=== PATIENT | female | born 2000 | race Two or more races ===

== ENCOUNTER 2025-02-21 13:24 | Outpatient (AMB) | payer OTHER, SELFPAY ==
--- NOTE | 2025-02-21 13:36 | MHC.OFFVIS ---
Intake Visit Reasons: back pain Allergies No Known Allergies (No Known Allergies*) Allergy (Unverified 06/29/24 15:04) HPI Comments Details: This is a 24-year-old previously healthy woman who was doing yoga and exercises in August 2021 when she bent over to touch her toes she felt a pop in her lower back and developed severe low back pain in the left buttock area and would occasionally get tingling down the left leg. Following that she has had multiple exacerbations of her back pain periodically especially if she picked up something heavy or was low walking for long. She has had physical therapy for 8 weeks with strengthening of the core muscles and stretching and education in how to lift and carry. In the last few weeks she has been doing excellent. Over the years she has had a few exacerbations where it would get really bad and she could not move. She has no persistent numbness or weakness. She gets occasional tingling down the front of the thigh that can go down to the foot but not recently. She has no bladder or bowel control problems. [facility] Medical History (Updated 02/21/25 @ 13:48 by Simon Sherman MD) Back pain Review of Systems Musc Reports back pain, Reports numbness, Reports radiating pain into limb and Reports stiffness Neuro Reports numbness and Reports radicular pain Physical Exam Neuro Other: ?Mini Mental Status Exam Level of Consciousness:?Alert.? Orientation:?Knows correct year, month, date, day and season.?Knows correct city, county and state. Knows correct location and floor.? Registration:?Able to register 3 objects.? Attention:?Serial 7's performed accurately.? Recall:?Able to recall 3 out of 3 objects.? Language:?Normal spontaneous speech, fluency, repetition, naming, comprehension, reading, and writing.? Total Score:?30/30.? Neurological Abnormal neurological findings:??none.? Mental Status:?Alert and oriented X 3.?Normal attention, orientation, memory, and affect.? Cranial Nerves:?Pupils are equal, round and reactive to light. Fundoscopy shows normal disc bilaterally. External occular muscles are intact. Visual enriquez are full, no ptosis. Face is symmetrical, no facial weakness or droop. Facial sensations are normal. Tongue protrudes in midline. Palate elevates symmetrically. Shoulder shrugging is normal.? Motor Examination:?Normal muscle tone, bulk and strength.?No atrophy or fasciculations.?No drift of the extended upper extremities.?Deep tendon reflexes are 2+.?Plantars are flexor.? Motor Strength:? Proximal Muscles (out of 5):?5 Distal Muscles (out of 5):?5 Neck Flexors (out of 5):?5 Neck Extensors (out of 5):?5 Deltoid (out of 5):?5 Biceps (out of 5):?5 Triceps (out of 5):?5 Serratus Anterior (out of 5):?5 Wrist Extensors (out of 5):?5 APB (out of 5):?5 Finger Spread (out of 5):?5 Ileopsoas (out of 5):?5 Quadriceps (out of 5):?5 Hamstrings (out of 5):?5 Tibialis Anterior (out of 5):?5 Peronei (out of 5):?5 EDB (out of 5):?5 Gastrocnemius (out of 5):?5 Straight Leg Raising:?90 degrees.? Sensory Exam:?Normal light touch, temperature, pinprick, vibration and joint-position sensations.?Rhomberg sign is absent.? Coordination:?No ataxia,?no titubation,?xppqya-ic-tvjt, uzcl-uemp-ozau test, and rapid alternating movements were normal.? Gait Exam:?Within normal limits.? Cerebellar Signs:?Xnhgwn-nb-qvff and yksj-wi-tzty is normal.?No dysdiadochokinesia.? Extrapyramidal System:?No tremor or?rigidity, normal facial expressions.?No bradykinesia. No bradyphrenia. Normal arm swing and posture. No propulsion or retropulsion.? Speech:?Normal,?no dysphasia or dysarthria.? General Examination GENERAL APPEARANCE:??normal,?in no acute distress?,?normal,?in no acute distress.? HEAD:??normocephalic,?atraumatic.? EYES:??sclera non-icteric,?conjunctiva clear.? EARS:??auditory canal clear,?tympanic membrane intact, clear.? NOSE:??no lesions.? ORAL CAVITY:??gums normal,?mucosa moist,?no lesions.? THROAT:??clear.? NECK/THYROID:??no cervical lymphadenopathy,?thyroid normal,?neck supple, full range of motion,?no carotid bruit.? SKIN:??no rashes,?no significant birthmarks.? BACK:??normal exam of spine.? MUSCULOSKELETAL:??normal.? EXTREMITIES:??no edema?,?no edema.? PERIPHERAL PULSES:??normal.? PSYCH:??alert, oriented,?cognitive function intact,?cooperative with exam?,?alert, oriented,?cognitive function intact,?cooperative with exam.? Assessment & Plan Assessment & Plan (1) Lumbar disc herniation with radiculopathy: Code(s): M51.16 - Intervertebral disc disorders with radiculopathy, lumbar region Category: Medical (2) Back pain: Code(s): M54.9 - Dorsalgia, unspecified Category: Medical Plan Core strengthening exercises. Caution and techniques for lifting and carrying weights more than 20 lb Call if there is an acute exacerbation in which case an MRI of the LS spine will be done Coding Level of Care Code New Pt Level 5 (29073) Diagnoses Lumbar disc herniation with radiculopathy M51.16 Back pain M54.9
--- OUTSIDE RECORDS SUMMARY | 2025-02-21 15:03 | XMS_ITS | Clinical Summary ---
Author Organization [facility] Address [address] [place] [id number] Phone Care Team Providers Care Manager Outpatient Name Role Phone Unavailable Primary Care Provider Unavailabl e Allergies No known active allergies Medications docusate sodium 100 MG capsule Take 100 mg by mouth once daily. 3 06/17/2016 Active loratadine (CLARITIN) 10 MG tabletIndication s:Allergic rhinitis due to other allergic trigger, unspecified rhinitis seasonality Take 1 tablet (10 mg total) by mouth daily. 30 tablet 1 11/19/2016 Active Active Problems Problem Noted Date Diagnosed Date Slow transit constipation 06/17/2016 Dysthymic disorder 06/17/2016 Assessment & Plan (11/23/2017 3:23 PM EDT): Reports some depression and anxiety, currently in therapy. Therapist suggested coming here to discuss medications, pt expresses interest in scheduling a time to discuss. No crisis today, feels safe. Screening forms for depression/anxiety provided to patient by [facility]. Pt to schedule 30 minute f/u to review and discuss. Pt comfortable with this plan. Other urticaria 06/01/2014 Other atopic dermatitis and related conditions 0 05/23/2009 Immunizations Immunization Administration Dates Next Due DTaP 5 01/11/2003, 1,07/16/1999,05/17,03/16/1999 HPV Vaccine 9 Valent 06/17/2016,05/16/2015 Hep B, ped/adol 07/16/1999,01/24/1999,1998 Hib (HbOC) 06/17/2000, 0,05/17/1999,03/16 IPV 01/11/2003, 0,05/17/1999,03/16 Influenza, injectable, quadr ivalent, preservative free 06/17/2016 Influenza, injectable, triva lent, preservative free 05/16/2015,04/08/2011 Influenza, intranasal, trivalent 12/26/2011 MMR 01/11/2003,07/08/2000,01/29/2000 Meningococcal Conj (Menactra) MCV4P 05/16/2015,1 06/09/2010 Tdap 04/08/2011 Varicella 12/26/2011,07/08/2000 Social History Tobacco Use Types Packs/Day Years Used Date Smoking Tobacco: Never Comments:Never Smoker Comments No Sex and Gender Information Value Date Recorded Sex Assigned at Not on file Legal Sex Female 4:09 PM EST Gender Identity Not on file Sexual Orientation Not on file Last Filed Vital Signs Vital Sign Reading Time Taken Comments Blood Pressure 110/60 11/23/2017 2:18 PM EDT Pulse 70 11/23/2017 2:18 PM EDT Temperature 36.4 C (97.5 F) 11/23/2017 2:18 PM EDT Respiratory Rate 20 11/23/2017 2:18 PM EDT Oxygen Saturation 98% 11/23/2017 2:18 PM EDT Inhaled Oxygen Concentration - - Weight 72.6 kg (160 lb) 11/23/2017 2:18 PM EDT Height 168.3 cm (5' 6.25 ) 05/16/2015 4:37 PM ES T Body Mass Index - - Plan of Treatment Health Maintenance Due Date Last Done Comments HPV Vaccines (3 - 3-dose series) 09/09/2016 06/17/2016, 05/16/2015 DTaP,Tdap,and Td Vaccines (7 - Td or Tdap) 04/08/2021 04/08/2011, 01/11/2003, 06/17/2000, Additional history exists Influenza Vaccines (#1) 2024 06/18/19 17, 05/16/2015, 12/26/2011, Additional history exists COVID-19 Vaccine ( - season) 2024 Hepatitis B Vaccines Completed 07/16/1999, 01/24/1999, 1998 HIB Vaccines Completed 06/17/2000, 07/1999, 05/17/1999, Additional history exists IPV Vaccines Completed 01/11/2003, 04/0 07/1999, 05/17/1999, Additional history exists MMR Vaccines Completed 01/11/2003, 06/12, 01/29/2000 Varicella Vaccines Completed 12/26/2011, 07/08/2000 Meningococcal Vaccine Completed 05/16/2015, 011 Hepatitis A Vaccines Aged Out No long er eligible based on patient's age to complete this topic Men B Vaccine Aged Out No longer elig ible based on patient's age to complete this topic Pneumococcal Vaccine Aged Out No long er eligible based on patient's age to complete this topic
--- OUTSIDE RECORDS SUMMARY | 2025-02-21 15:03 | XMS_ITS | Clinical Summary ---
Author Organization [facility] Address [address] [place] [address] Phone Care Team Providers Care Oil Field Tester Name Role Phone Martha Up MD Primary Care Provider [phone] Allergies No known active allergies Medications azithromycin (ZITHROMAX) 250 mg tablet Take 2 tablets (500 mg total) by mouth. today, then 1 pill PO QD for 4 days 02/12/2024 Active norethindrone-et hinyl estradiol (JUNE05/02) 1 mg-20 mcg (21)/75 mg (7) per tablet Take 1 tablet by mouth 1 (one) time each day. 11/11/2023 Active tiZANidine (ZANAFLEX) 2 mg tabletIndication s:Low back pain with left-sided sciatica, unspecified back pain laterality, unspecified chronicity Take 1 tablet (2 mg total) by mouth 3 (three) times a day if needed for muscle spasms. 30 tablet 08/25/2024 Active gabapentin (NEURONTIN) 100 mg capsuleIndicatio ns:Low back pain with left-sided sciatica, unspecified back pain laterality, unspecified chronicity Take 1 capsule (100 mg total) by mouth at bedtime as needed (back pain). 30 each 5 08/25/2024 Active Active Problems Problem Noted Date Diagnosed Date Allergic rhinitis 08/29/2020 Cervical adenopathy 08/29/2020 Constipation due to slow transit 08/29/2020 Eczema 08/29/2020 Overview (02/27/2024): Mild. Anxiety and depression 07/30/2020 Menorrhagia 07/30/2020 Immunizations Immunization Administration Dates Next Due DTaP (Infanrix) 6wks to less than 7yo ,06/17/2000,07/16/1999,05/17,03/16/1999 PUfS-YAM-AJD (Pentacel) 2mo to less than 5yo 06/17/2000,07/16/1999,05/17/1999,03/16 HPV, Quadrivalent 06/17/2016,05/16/2015 Hepatitis B Pediatric (Enger ix B; Recombivax HB) to less than 20 yo 07/16/1999,01/24/1999,1998 IPV Inactivated polio (Ipol) 6wks and older 01/11/2003,07/16/1999,05/17/1999 MMR, measles mumps and rubel la Live (Priorix; M-M-R II) 12mo and older 01/11/2003,07/08/2000,01/29/2000 Meningococcal MCV4P 05/16/2015,04/08/2011 Moderna SARS-CoV-2 COVID-19, mRNA, LNP-S, preservative free 08/15/2020,07/18/2020 OPV 03/16/1999 Tdap Tetanus diptheria acell ular pertussis (Boostrix; Adacel) 7yo and older 04/08/2011 Varicella live (Varivax) 12m o and older 12/26/2011 Surgical History Surgery Date Site/Laterality Comments OTHER SURGICAL HISTORY PROCEDURE: DENIES PREVIOUS SURGERY Medical History Medical History Date Comments Anxiety and depression DX:Anxiet y and depression Menorrhagia DX:Menorrhagia Family history of glaucoma i n grandfather DX:Family history of glaucom a in grandfather History of pneumonia 08/29/2020 DX:History of pneumonia; COMMENT: 06/23/2017 RLL. Allergic rhinitis 08/29/2020 DX:Allergic rh initis Eczema 08/29/2020 DX:Eczema; COMME NT: Mild. Constipation due to slow transit 08/29/2020 DX:Constipation due to slow transit Cervical adenopathy 08/29/2020 DX:Cervical adenopathy Family History Medical History Relation Name Comments Glaucoma Maternal Grandfather Cervical cancer Maternal Grandmother Diabetes Paternal Grandmother Relation Name Status Comments Father Alive Maternal Grandfather Alive Maternal Grandmother Alive Mother Alive Paternal Grandfather Alive Paternal Grandmother Alive Social History Tobacco Use Types Packs/Day Years Used Date Smoking Tobacco: Never Smokeless Tobacco: Never Alcohol Use Standard Drinks/Week Comments Not Currently 0 (1 standard drink = 0.6 oz pur e alcohol) Comments Unknown Sex and Gender Information Value Date Recorded Sex Assigned at Female 08/11/2024 7:10 PM EDT Legal Sex Female 7:32 PM EST Gender Identity Female 08/11/2024 7:10 PM EDT Sexual Orientation Not on file Obstetrics History Para Term AB IAB SAB Ectopic Multiple Livin g Live Births 0 0 0 0 0 0 0 0 Last Filed Vital Signs Vital Sign Reading Time Taken Comments Blood Pressure 126/83 09/07/2024 3:07 PM EDT Pulse 82 09/07/2024 3:07 PM EDT Temperature 36.6 C (97.8 F) 09/07/2024 3:07 PM EDT Respiratory Rate 17 04/04/2024 2:38 PM EST Oxygen Saturation 100% 09/07/2024 3:07 PM EDT Inhaled Oxygen Concentration - - Weight 69.6 kg (153 lb 6.4 oz) 09/07/2024 3:07 P M EDT Height 167.6 cm (5' 6 ) 09/07/2024 3:07 PM EDT Body Mass Index 24.76 09/07/2024 3:07 PM EDT Plan of Treatment Health Maintenance Due Date Last Done Comments HPV Vaccines (3 - 3-dose series) 09/09/2016 06/17/2016, 05/16/2015 DTaP,Tdap,and Td Vaccines (7 - Td or Tdap) 04/08/2021 04/08/2011, 01/11/2003, 01/11/2003, Additional history exists HIV Screening 03/22/2022 Hepatitis C Screening 03/22/2022 Social Influencers of Health Screening 03/22/2022 Depression Screening 04/13/2024 04/21/2023 COVID-19 Vaccine ( season) 2024 08/15/2020, 07/18/2020 Influenza Vaccine (#1) 2024 7, 05/16/2015, 12/26/2011, Additional history exists Cervical Cancer Screening: Pap Smear 10/22/2025 10/22/2022, 10/22/2022, 10/13/2022, Additional history exists Cholesterol Screening (Lipid Panel) 10/11/2028 10/12/2023, 10/12/2023 RSV Immunization Adult Patients (1 - 1-dose 75+ series) 2073 Hepatitis B Vaccines Completed 07/16/1999, 01/24/1999, 1998 HIB Vaccines Completed 06/17/2000, 0 10/2000, 07/16/1999, Additional history exists IPV Vaccines Completed 01/11/2003, 10/2000, 07/16/1999, Additional history exists MMR Vaccines Completed 01/11/2003, 06/12, 01/29/2000 Varicella Vaccines Completed 12/26/2011, 07/08/2000 Meningococcal ACWY Vaccine Completed 05/16/2015, Gonorrhea/Chlamydia Screening Discontinued 09/28/2020 Hepatitis A Vaccines Aged Out No long er eligible based on patient's age to complete this topic Meningococcal B Vaccine Aged Out No l onger eligible based on patient's age to complete this topic Pneumococcal Vaccine: Pediatrics (0 to 5 Years) and At-Risk Patients (6 to 49 Years) Aged Out No longer eligible based on patient's age to complete this topic RSV Immunization Patients Under 20 months Aged Out No longer eligible based on patient's age to complete this topic Procedures Procedure Name Priority Date/Time Associated Diagnosis Comments LIPID PANEL Routine 10/12/2023 DEPRESSION SCREENING Routine 04/21/2023 HPV Routine 10/22/2022 GONORRHEA/CHLAMYDIA SCRREENING Routine 09/28/2020 from Last 3 Months or Most Recently Relevant to Health Maintenance Results * (ABNORMAL) Lipid panel (10/12/2023) LDL/HDL Ratio 3 0 - 4 Triglycerides 90 0 - 150 mg/dL Cholesterol 209(A) 0 - 200 mg/dL HDL 61 >=40 mg/dL LDL Cholesterol 130(A) 0 - 100 mg/dL Blood Venous blood specimen / Unknown Historical Provider LAB BLOOD ORDERABLES Susana l Result * Depression Screening (04/21/2023) Depression Screening abstracted [facility] Provider HEALTH MAINTENANCE Final Result * Cervical Cancer Screening: HPV (10/22/2022) Cervical Cancer Screening: HPV negative, abstracted Historical Provider HEALTH MAINTENANCE Final Result * Gonorrhea/Chlamydia Screening (09/28/2020) Pathologist [facility] Gonorrhea/Chla mydia Screening abstracted Historical Provider HEALTH MAINTENANCE Final Result from Last 3 Months or Most Recently Relevant to Health Maintenance Insurance [facility] Care Teams Oil Field Tester Relationship Specialty Start Date End Date Martha Up MD [address] [place] [id number] PCP - General Internal Medicine 04/25/20
--- OUTSIDE RECORDS SUMMARY | 2025-02-21 15:03 | XMS_ITS | Clinical Summary ---
Author Organization [facility] Address [address] [place] [address] Phone Care Team Providers Care Water Supervisor Name Role Phone System, Provider Not In PhD Primary Care Provide r Unavailable Allergies No known active allergies Medications naproxen (NAPROSYN) 500 MG tablet Orally Active etonogestreL (NEXPLANON) 68 mg Impl Inject 68 mg into the skin Once every 3 years. Active Hospital, Clinic, or Other Facility Administered Medication Ordered Dose Route Frequency Start Date End Date Status etonogestreL (NEXPLANON) subdermal implant 68 mgIndications:Encounter for removal of subdermal contraceptive implant,Encounter for insertion of intrauterine contraceptive device 68 mg IDrm Every 3 years 10/04/2019 A ctive Immunizations Immunization Administration Dates Next Due Dtap, 5 Pertussis Antigens 01/11/2003,,07/16/1999,05/17,03/16/1999 HPV9 06/17/2016,05/16/2015 Hepatitis B 07/16/1999,01/24/1999,1998 Hib,HbOC 06/17/2000, 0,05/17/1999,03/16 INFLUENZA, SPLIT VIRUS, TRIVALENT PF 05/16/2015, 04/08/2011 IPV 01/11/2003, 0,05/17/1999,03/16 Influenza Quadrivalent Prese rvative Free IM 06/17/2016 Influenza quadrivalent nasal 12/26/2011 MMR 01/11/2003,07/08/2000,01/29/2000 Meningococcal MCV4P 05/16/2015,04/08/2011 Tdap 04/08/2011 Varicella 12/26/2011,07/08/2000 Family History Medical History Relation Comments Breast cancer Maternal Grandmother Diabetes mellitus Paternal Grandmother Relation Status Comments Maternal Grandmother Paternal Grandmother Social History Tobacco Use Types Packs/Day Years Used Date Smoking Tobacco: Never Smokeless Tobacco: Never Alcohol Use Standard Drinks/Week Comments Never 0 (1 standard drink = 0.6 oz pur e alcohol) Education Answer Date Recorded Are you interested in more education? Not on brown e 08/08/2022 Are you concerned about learning? Not on file 08/08/2022 No 08/08/2022 No 08/08/2022 Digital Access Answer Date Recorded No 09/05/2022 No 09/05/2022 Reliable internet access at home? Not on file 09/05/2022 Device with a working camera? Not on file Comments No Sex and Gender Information Value Date Recorded Sex Assigned at Not on file Legal Sex Female 8:47 PM EDT Gender Identity Not on file Sexual Orientation Not on file Last Filed Vital Signs Vital Sign Reading Time Taken Comments Blood Pressure 120/74 10/04/2019 12:04 PM EDT Pulse - - Temperature - - Respiratory Rate - - Oxygen Saturation - - Inhaled Oxygen Concentration - - Weight 80.6 kg (177 lb 9.6 oz) 10/04/2019 12:04 PM EDT Height 168.9 cm (5' 6.5 ) 11/17/2016 3:10 AM EDT Body Mass Index - - Plan of Treatment Health Maintenance Due Date Last Done Comments DEPRESSION SCREENING 2010 HPV VACCINES (3 - 3-dose series) 09/09/2016 06/17/2016, 05/16/2015 HEPATITIS C SCREENING 2016 HIV ONE-TIME SCREENING (18-65 YEARS) 2016 PAP SMEAR 12/26/2019 Adult Td,Tdap Booster 04/08/2021 04/08/2011 INFLUENZA VACCINE (#1) 2024 7, 05/16/2015, 12/26/2011, Additional history exists COVID-19 VACCINE ( season) 2024 SMOKING STATUS SCREENING (Once After 26 Yrs) 2024 HIB VACCINES Completed 06/17/2000, 07/1999, 05/17/1999, Additional history exists IPV VACCINES Completed 01/11/2003, 07/1999, 05/17/1999, Additional history exists MENINGOCOCCAL VACCINES (ACWY) Completed 05/16/2015, 04/08/2011 HEPATITIS A VACCINES Aged Out No long er eligible based on patient's age to complete this topic MENINGOCOCCAL VACCINES (B) Aged Out N o longer eligible based on patient's age to complete this topic PNEUMOCOCCAL VACCINES (0-49 years) Aged Out No longer eligible based on patient's age to complete this topic Medical Devices Not on file Insurance HMO HMO HMO O HMO O O O HMO Care Teams Water Supervisor Relationship Specialty Start Date End Date System, Provider Not In, [place] [address] PCP - General 10/04/19 Additional Source Comments The information contained in this document represents components of the legal health record. It is not the complete legal health record.[facility]
--- OUTSIDE RECORDS SUMMARY | 2025-02-21 15:03 | XMS_ITS | Encounter Summary ---
Author Organization [facility] Address [address] [place] [address] Phone Care Team Providers Care Turbine Assembler Name Role Phone Franchesca Sigala MD Primary Care Provider [phone] Encounter Details Date Type Department Care Team (Late st Contact Info) Description 08/11/2016 Patient Outreach [facility], [address] [place] [address] Burkinan, Nubia Social History Tobacco Use Types Packs/Day Years Used Date Smoking Tobacco: Never Comments:Never Smoker Comments Unknown Sex and Gender Information Value Date Recorded Sex Assigned at Not on file Legal Sex Female 4:09 PM EST Gender Identity Not on file Sexual Orientation Not on file documented as of this encounter Plan of Treatment Not on file documented as of this encounter Visit Diagnoses Not on filedocumented in this encounter Care Teams Turbine Assembler Relationship Specialty Start Date End Date Franchesca Sigala MD [address] [place] [address] [address] [place] [address] PCP - General 06/02/16 09/18/19 documented as of this encounter
== END 2025-02-21 16:25 | disposition home or self-care (01) ==
PROVIDERS: PCP Internal Medicine; Visit Provider Psychiatry & Neurology Neurology
DX: M51.16 Intervertebral disc disorders with radiculopathy, lumbar region (principal); M54.9 Dorsalgia, unspecified
CPT/HCPCS: 99203

== ENCOUNTER → 2025-02-21 13:24 | Outpatient (BNVA) | payer OTHER, SELFPAY | PROVIDERS: PCP Internal Medicine; Visit Provider Psychiatry & Neurology Neurology | DX: M51.16 Intervertebral disc disorders with radiculopathy, lumbar region (principal) | CPT/HCPCS: 99202 ==

== ENCOUNTER 2025-03-08 11:57 | Emergency (ER) | payer OTHER, SELFPAY ==
[2025-03-08 11:59] VITALS: BP 148/83; PULSE 85; RESP 16; TEMP 36.6; O2SAT 95; BMI 27.6
--- NOTE | 2025-03-08 12:00 | ED_ITS ---
HPI - Extremity Injury (Upper) General Chief Complaint: Wound/Laceration Stated Complaint: hand inj, finger tingling Time Seen by Provider: 03/08/25 12:10 Source: patient Mode of arrival: ambulatory Limitations: no limitations History of Present Illness ED Provider: Janneth Adam PA-C HPI narrative: Patient is a 24 year old assigned female at with no reported medical history presenting to the emergency department today with left hand pain. Patient states that on 03/08/2025 she was using a kitchen knife to cut into the center of a frozen water bottle when she accidentally stabbed her left hand between her left thumb and index finger. Patient states that she was not evaluated after the injury. Patient states that since then she has intermittently had left index and thumb numbness / tingling but it always resolves. Patient states she still has normal movement in the left index finger and thumb. Patient denies any other complaints at this time. Related Data Previous Rx's ?Medication ?Instructions ?Recorded amoxicillin 875 mg-potassium 1 tab PO BID 5 days #10 t abs 03/08/25 clavulanate 125 mg tablet Allergies Allergy/AdvReac Type Severity Reaction Status Date / Time No Known Allergies (No Known Allergy Verified 03/08/25 12:03 Allergies*) Review of Systems 2 Constitutional: Constitutional: Reports as per HPI Eyes: Eyes: Reports as per HPI ENT: Reports as per HPI Cardiovascular: Cardiovascular: Reports as per HPI Respiratory: Respiratory: Reports as per HPI Gastrointestinal: Gastrointestinal: Reports as per HPI Genitourinary: Genitourinary: Reports as per HPI Musculoskeletal: Musculoskeletal: Reports as per HPI Integumentary/Breasts: Skin/Breast: Reports as per HPI Neurologic: Reports as per HPI Psychiatric: Psychiatric: Reports as per HPI Endocrine: Endocrine: Reports as per HPI Hematologic/Lymphatic: Hematologic/Lymphatic: Reports as per HPI Allergic/Immunologic: Allergic/Immunologic: Reports as per HPI PMF Past Medical History Attestation statement: The following information was validated with the patient. Source: old records reviewed and nursing notes reviewed Medical History Back pain Social History Social History Advance Directives: No Advance Directives Information Provided: Yes Do you have a plan to hurt others: No Plan Physical Exam 2 Vital Signs: Vital Signs: Last Vital Signs Temp 97.9 F 03/08/25 12:36 Pulse 85 03/08/25 12:36 Resp 16 03/08/25 12:36 BP 148/83 H 03/08/25 12:36 Pulse Ox 95 03/08/25 12:36 O2 Del Method Room Air 03/08/25 12:36 BMI result Body Mass Index 27.6 Const: General: cooperative, no acute distress, alert and awake Nutritional Appearance: well nourished Orientation/consciousness: patient oriented x3 HEENT: Head: Yes normal to inspection and Yes atraumatic Ears: hearing grossly normal bilaterally and external ears normal General nose exam: Normal external nose present, no nasal discharge noted and no epistaxis Face and sinus: Yes normal facial exam, No abrasion and No laceration Mouth: Normal oral and palatal mucosa present, no drooling and no muffled voice Eyes: General: appearance normal, both eyes and all related structures P eriorbital: periorbital findings normal Eyelids: Yes eyelids normal C onjunctivae: conjunctivae normal Pupils: Equal, round and reactive pupils present EOM: EOMs intact bilaterally Neck: Neck: Yes normal visual inspection and Yes full ROM Resp: Effort & Inspection: normal respiratory effort and able to speak in complete sentences Neuro: General: patient oriented x3, moves all extremities and CN's II-XI intact bilaterally Cranial nerves: Yes Equal, round and reactive pupils present Cognition (Neuro): normal cognition Extrem: Other: General: Yes full ROM and Yes capillary refill normal Psych: Appearance: grossly normal Mental Status: mental status grossly normal Affect: normal affect Attitude: cooperative Thought process: N ormal thought process present Thought content: Normal thought content present Insight: Good insight present (Psych) Course Course Course Narrative: This is a Rapid Medical Exam performed in triage by Emily Ladd PA-C. Full HPI, ROS and PE to be performed by primary ED provider. 24 yo F presenting to the ED c/o L hand numbness s/p accidentally stabbing hand with knife a few days ago. Sent in by PCP for eval. Tetanus unknown PE: +healing wound to L hand webspace between 1-2nd digits. pain with ROM Plan: clean wound, tetanus Medications Administered Discontinued Medications Generic Name Dose Route Start Last Admin Trade Name Freq PRN Reason Stop Dose Admin Diphtheria/Tetanus/Acell Pertussis 0.5 ml 03/08/25 12:04 03/08/25 12:19 Diphth,Pertus(Acell),Tet Adult 0.5 Ml Syringe IM 03/08/25 12:05 0.5 ml .ONCE ONE Administration Medical Decision Making Medical Decision Making MDM Narrative: Patient is a 24 year old assigned female at with no reported medical history presenting to the emergency department today with left hand pain. Patient's physical exam was as noted in the physical exam portion of this note. Patient's ROM of the left thumb, left index finger, and entire left hand was normal and intact. Patient's PMS was present and intact of the left hand. Patient's wound is well healing with no evidence of erythema or warmth. Given patient's presentation - will cover prophylactically with ABX for 5 days and bring her up to date on tetanus. I explained my physical exam findings to the patient. I answered all questions asked by the patient. I stressed the importance of the patient taking her medication as directed (either prescribed or as the over the counter packaging recommends). I stressed the importance of the patient following up with her primary care provider and the orthopedic / hand team. I stressed the importance of the patient returning to the emergency department immediately if her symptoms were to worsen or if she were to develop any dizziness, shortness of breath, difficulty breathing, chest pain, blurry vision, loss of vision, nausea, vomiting, abdominal pain, fever, chills, back pain, or any other complaints. Patient verbalized agreement and understanding with this treatment plan and discharge. Differential Diagnosis Differential Diagnoses: The differential diagnosis associated with the presentation includes Left hand injury Left hand laceration Admission/Observation Consideration of admission/observation: Escalation of care including admission/observation considered Patient would have been admitted to the hospital had her clinical presentation warranted hospital admission. Tests considered The following testing was considered but not selected: I considered obtaining an x-ray of the left hand however, the patient's current clinical presentation and mechanism of injury did not warrant this Prescription Management I considered prescription management with: Antibiotic (patient prescribed a prophylactic antibiotic as noted in the MDM Rationale portion of this note. ) Discharge Plan Discharge Clinical Impression: Laceration of hand Patient Disposition: Home, Self-Care Instructions: Laceration Without Closure (ED) Additional Instructions: Your left hand wound is healing appropriately. The symptoms you have described are consistent with what can happen with post injury swelling. If the intermittent symptoms become PERSISTENT please come back to the emergency department immediately. Take your prophylactic antibiotic as prescribed. Follow up with the orthopedic team. IF you are prescribed home medications and/or you are taking over the counter medications at home - it is very important you continue to do so as prescribed / directed unless told otherwise by a healthcare provider. Follow up with your primary care provider. Do your best to stay well hydrated and rest. Return to the emergency department immediately if your symptoms worsen or if you develop any numbness, tingling, dizziness, shortness of breath, difficulty breathing, chest pain, blurry vision, loss of vision, nausea, vomiting, abdominal pain, fever, chills, back pain, or any other complaints. L If you do not have a primary care provider - call any of the below numbers to establish and follow up with a primary care provider. [facility] Primary Care ([place]) [phone] [place] [address], [address] [facility] Primary Care ([address] [place]) [phone] [place] [address], [address] [facility], [address] [facility] Primary Care ([address] [place]) [phone] [place] [address], [address] [facility], [address] [facility] Care ([place]) [phone] [place] [address] [address] [facility], [address] [facility] Family Medicine [phone] [address] [facility], [address] Please see the information below about our Patient Portal. If you are not yet enrolled in the [facility] Patient Portal, you will receive an enrollment email invitation following your visit to any [facility] setting. You may also self-enroll in the Patient Portal by visiting our website: [email or web address] The following information is required to access the Patient Portal: - Your [facility] Medical Record Number - Your personal home email address (must match what is in your electronic medical record, Registration staff can assist with this) - Name - Date of Capabilities of the Patient Portal: - Message some providers - View upcoming appointments - Access your health summary, medical history, and visit history - View current conditions and allergies - View procedure and lab results - View your medications, including guidelines, side effects, and precautions - Complete pre-appointment questionnaires requested by your provider - Ready summary reports of your office visits and procedures To access the Patient Portal Mobile Krystal, follow these directions: - Search FanTree in the Krystal Store or Google Play Store - Download the Krystal - Search for [facility] - Enter your login/password Prescriptions: New amoxicillin-pot clavulanate 875-125 mg tablet 1 tab PO BID 5 Days Qty: 10 0RF Referrals: [facility] Orthopedic Surgeons [Provider Group] Referral Note: Call to establish and follow up with the orthopedic team for your re-evaluation of your left hand. Martha Up MD [Primary Care Provider, Internal Medicine] Stand Alone Forms: Work/School Release Interventions: ED Discharge Assessment Last Done: 03/08/25 12:36 Discharge Date/Time: 03/08/25 12:36 Print Language: Kosovan
[2025-03-08] MEDS: Diphth,Pertus(ACell),Tet Adult 0.5 ML SYRINGE IM (12:19)
[2025-03-08 12:36] VITALS: BP 148/83; PULSE 85; RESP 16; TEMP 36.6; O2SAT 95
--- OUTSIDE RECORDS SUMMARY | 2025-03-08 15:20 | XMS_ITS | Clinical Summary ---
Author Organization [facility] Address [address] [place] [address] Phone Care Team Providers Care Capital Project Engineer Name Role Phone System, Provider Not In [...] 05/16/2015, 12/26/2011, Additional history exists COVID-19 VACCINE (2024- season) 2024 SMOKING STATUS SCREENING (Once After 26 Yrs) 2024 HIB VACCINES Completed 06/17/2000, 07/1999, 05/17/1999, Additional history exists MENINGOCOCCAL VACCINES [...] Devices Not on file Insurance HMO HMO [employer] O O O O O HMO Care Teams Capital Project Engineer Relationship Specialty Start Date End Date System, Provider Not In, [place] [address] PCP - General 10/04/19 Additional Source Comments The information contained in this document represents components of the legal health record. It is not the complete legal health record.[facility]
--- OUTSIDE RECORDS SUMMARY | 2025-03-08 15:20 | XMS_ITS | Clinical Summary ---
Author Organization [facility] Address [address] [place] [address] Phone Care Team Providers Care Mobile Electronics Installer Name Role Phone Martha Up MD Primary Care Provider [phone] Allergies No known active allergies Medications azithromycin [...] Mild. Anxiety and depression 07/30/2020 Menorrhagia 07/30/2020 Encounters Date Type Department Care Team Description 03/08/2025 Telephone Internal Medicine - [address] [place] [address] Martha Up MD from Last 3 Months Immunizations Immunization Administration Dates Next Due DTaP (Infanrix) 6wks to less than 7yo ,06/17/2000,07/16/1999,05/17,03/16/1999 [id number] (Pentacel) 2mo to less than 5yo 06/17/2000,07/16/1999,05/17/1999,03/16 [...] 09/07/2024 3:07 PM EDT Plan of Treatment Upcoming Encounters Date Type Department Care Team (Late st Contact Info) Description 03/17/2025 3:45 PM EST Office Visit Internal Medicine - [address] [place] [address] Martha Up MD [address] [place] [phone] Health Maintenance Due Date Last Done Comments [...] 07/16/1999, 01/24/1999, 1998 HIB Vaccines Completed 06/17/2000, 10/2000, 07/16/1999, Additional history exists IPV Vaccines [...] Maintenance Results * (ABNORMAL) Lipid panel (10/12/2023) Pathologist [facility] LDL/HDL Ratio 3 0 - 4 Triglycerides 90 0 - 150 mg/dL Cholesterol 209(A) 0 - 200 mg/dL HDL 61 >=40 mg/dL LDL Cholesterol 130(A) 0 - 100 mg/dL Blood Venous blood specimen / Unknown [facility] Provider LAB BLOOD ORDERABLES Susana l Result * Depression Screening (04/21/2023) Pathologist [facility] Depression Screening abstracted [facility] Provider HEALTH MAINTENANCE Final Result * Cervical Cancer Screening: HPV (10/22/2022) [facility] Cervical Cancer Screening: HPV negative, abstracted [facility] Provider HEALTH MAINTENANCE Final Result * Gonorrhea/Chlamydia Screening (09/28/2020) [facility] Gonorrhea/Chla mydia Screening abstracted [facility] Provider HEALTH MAINTENANCE Final Result from Last 3 Months or Most Recently Relevant to Health Maintenance Insurance [facility] Care Teams Mobile Electronics Installer Relationship Specialty Start Date End Date Martha Up MD [address] [place] [phone] PCP - General Internal Medicine 04/25/20
--- OUTSIDE RECORDS SUMMARY | 2025-03-08 15:20 | XMS_ITS | Clinical Summary ---
Author Organization [facility] Address [address] [place] [address] Care Team Providers Care Digital Account Director Name Role Phone Martha Up MD Primary Care Provider [phone] Allergies No known active allergies Medications Medication Sig Dispensed Refills Start Date End Date Status Cholecalciferol 50 MCG (1999) Tab TAKE 1 TABLET BY MOUTH EVERY DAY 90 Tablet 3 05/22/2023 Active Cholecalciferol (Vitamin D) 50 MCG (1999) Tab Take 1 Tablet by mouth daily. 90 Tablet 3 10/13/2023 Active norethindrone-ethinyl estradiol (JUNEL FE 05/02) 1-20 MG-MCG per tablet TAKE 1 TABLET BY MOUTH EVERY DAY 84 Tablet 3 11/11/2023 Active azithromycin (Zithromax) 250 MG tablet 2 pills PO today, then 1 pill PO QD for 4 days. 6 Tablet 0 02/12/2024 Active Active Problems Problem Noted Date History of pneumonia 08/29/2020 Overview: 06/23/2017 RLL. Allergic rhinitis 08/29/2020 Eczema 08/29/2020 Overview: Mild. Constipation due to slow transit 021 Cervical adenopathy 08/29/2020 Anxiety and depression 07/30/2020 Menorrhagia 07/30/2020 Immunizations Name Administration Dates Next Due COVID-19 (Moderna) PT Reported 08/15/2020,2020 DTaP 01/11/2003, 1,07/16/1999,05/17/1999,1 1998 HIB 06/17/2000,07/16/1999,05/17/1999 ,03/16/1999 HPV (Gardasil) 06/17/2016,05/16/2015 Hepatitis B-3 Dose (<19yrs) 07/16/1999, 9,1998 MMR (Lwvgtpr-Vnuxw-Eslhcqe) 01/11/2003, 1,01/29/2000 Meningococcal (Menactra) 05/16/2015,04/08/2011 Polio (IPV) 01/11/2003,07/16/1999,05/17/1999 Polio (OPV) 03/16/1999 Tdap 04/08/2011 Varicella 12/26/2011 Family History Medical History Relation Name Comments Glaucoma Maternal Grandfather Cervical Cancer Maternal Grandmother Diabetes Paternal Grandmother Relation Name Status Comments Father Alive Maternal Grandfather Alive Maternal Grandmother Alive Mother Alive Paternal Grandfather Alive Paternal Grandmother Alive Social History Tobacco Use Types Packs/Day Years Used Date Smoking Tobacco: Never Smokeless Tobacco: Never Tobacco Cessation:Counseling Given: Not Answered Alcohol Use Standard Drinks/Week Comments Not Currently 0 (1 standard drink = 0.6 oz pur e alcohol) Sex Assigned at Date Recorded Not on file Job Start Date Occupation Industry Not on file Not on file Not on file Last Filed Vital Signs Vital Sign Reading Time Taken Comments Blood Pressure 112/76 02/12/2024 11:00 AM EDT Pulse 98 02/12/2024 11:00 AM EDT Temperature 36 C (96.8 F) 02/12/2024 11:00 AM EDT Respiratory Rate 14 08/29/2020 10:07 AM EDT Oxygen Saturation 99% 02/12/2024 11:00 AM EDT Inhaled Oxygen Concentration - - Weight 73.6 kg (162 lb 3.2 oz) 10/09/2023 3:45 P M EDT Height 168.9 cm (5' 6.5 ) 10/09/2023 3:45 PM EDT Body Mass Index 25.79 10/09/2023 3:45 PM EDT Plan of Treatment Health Maintenance Due Date Last Done Comments DTAP/TDAP/TD (7 - Td or Tdap) 04/08/2021, 01/11/2003, 06/17/2000, Additional history exists BMI CHECK/ADVISE 04/13/2024 10/09/2023, 12/2023, 10/13/2022, Additional history exists DEPRESSION SCREENING/FOLLOWUP 04/13/2024, 10/24/2020, 07/30/2020, Additional history exists SOCIAL NEEDS SCREENING 04/13/2024 Covid-19 Vaccine (3 - 2022-2 4 season) 2024 08/15/2020, 07/18/2020 INFLUENZA (#1) 2024 CERVICAL CANCER SCREENING 10/13/2025 10/13/2022, BASELINE HEALTH EXAM 18-39 10/11/202810/11, 10/09/2023, 04/23/2022, Additional history exists CHOLESTEROL SCREENING 10/11/2028 10/12/2023, 021 PNEUMOCOCCAL VACCINE FOR HIG H RISK PATIENTS (#1) 12/26/2063 Care Teams Digital Account Director Relationship Specialty Start Date End Date Martha Up MD PCP - General Internal Medicine 04/25/20
--- OUTSIDE RECORDS SUMMARY | 2025-03-08 15:20 | XMS_ITS | Encounter Summary ---
Author Organization [facility] Address [address] [place] [address] Care Team Providers Care Aerodynamicist Name Role Phone Martha Up MD Primary Care Provider [phone] Encounter Details Date Type Department Care Team Description 02/10/2023 Pt. Non Urgent Medical Question Internal Medicine - [address], [address] [place] [address] Martha Up MD [address] [place] [phone] Social History Tobacco Use Types Packs/Day Years Used Date Smoking Tobacco: Never Cigarettes Smokeless Tobacco: Never Alcohol Use Standard Drinks/Week Comments Not Currently 0 (1 standard drink = 0.6 oz pur e alcohol) Sex Assigned at Date Recorded Not on file Job Start Date Occupation Industry Not on file Not on file Not on file documented as of this encounter Plan of Treatment Not on file documented as of this encounter Visit Diagnoses Not on filedocumented in this encounter Care Teams Aerodynamicist Relationship Specialty Start Date End Date Martha Up MD PCP - General Internal Medicine 04/25/20 documented as of this encounter
--- OUTSIDE RECORDS SUMMARY | 2025-03-08 15:20 | XMS_ITS | Encounter Summary ---
Author Organization [facility] Address [address] [place] [address] Phone Care Team Providers Care Waterfront Director Name Role Phone Franchesca Sigala MD Primary Care Provider [phone] Encounter Details Date Type Department Care Team (Late st Contact Info) Description 08/11/2016 Patient Outreach [facility], [address] [place] [address] [place], [place] Social History Tobacco Use Types Packs/Day [...] on filedocumented in this encounter Care Teams Waterfront Director Relationship Specialty Start Date End Date Franchesca Sigala MD [address] [place] [address] [address] [place] [address] PCP - General 06/02/16 09/18/19 documented as of this encounter
--- OUTSIDE RECORDS SUMMARY | 2025-03-08 15:20 | XMS_ITS | Encounter Summary ---
Author Organization [facility] Address [address] [place] [address] Care Team Providers Care Gauge Inspector Name Role Phone Martha Up MD Primary Care Provider [phone] Encounter Details Date Type Department Care Team (Late st Contact Info) Description 03/08/2025 Telephone Internal Medicine - [place] [address] [place] [address] Martha Up MD [address] [place] [phone] Social History Tobacco Use Types Packs/Day Years [...] PM EDT Sexual Orientation Not on file documented as of this encounter Progress Notes * Nicole Moran RN - 03/08/2025 10:36 AM EST Call to pt # [phone], spoke to pt Pt had stabbed herself Thursday between her thumb and index finger. It initially was bleeding but pt held pressure and has had it covered since. Pt believes it is healing well but is having some numbness and tingling in her fingers. Advised pt to go to ER for nerve testing. Pt agreed and stated shewill go. * Rosario Sepulveda - 03/08/2025 10:18 AM EST Injured left hand on Thursday at around 6 pm, accidentally stabbed herself with a knife. Is having swelling and some numbness. Please advise? CB# [phone] documented in this encounter Plan of Treatment Upcoming Encounters Date Type Department Care Team (Late st Contact Info) Description 03/17/2025 3:45 PM EST Office Visit Internal Medicine - [place] [address] [facility] [address] [place] [address] Martha Up MD [address] [place] [phone] documented as of this encounter Visit Diagnoses Not on filedocumented in this encounter Care Teams Gauge Inspector Relationship Specialty Start Date End Date Martha Up MD [address] [phone] PCP - General Internal Medicine 04/25/20 documented as of this encounter
--- OUTSIDE RECORDS SUMMARY | 2025-03-08 15:20 | XMS_ITS | Clinical Summary ---
Author Organization [facility] Address [address] [place] [phone] Phone Care Team Providers Care Pbx Teacher Name Role Phone Unavailable Primary Care Provider [...] forms for depression/anxiety provided to patient by [facility]. Pt to schedule 30 minute f/u to [...]
== END 2025-03-08 12:36 | disposition home or self-care (01) ==
PROVIDERS: Emergency Provider Emergency Medicine; PCP Internal Medicine
DX: S61.412A Laceration without foreign body of left hand, initial encounter (principal); Z23 Encounter for immunization; W26.0XXA Contact with knife, initial encounter; Y93.9 Activity, unspecified; Y92.9 Unspecified place or not applicable; Y99.9 Unspecified external cause status
CPT/HCPCS: 90471; 90715; 99282; 99284

== ENCOUNTER 2025-03-14 13:23 | Outpatient (AMB) | payer OTHER, SELFPAY ==
--- NOTE | 2025-03-14 13:30 | A.OFFVIS_ITS ---
Vital Signs 03/14/25 13:31 Height 5 ft 6 in Weight 170 lb BMI 27.4 Intake Visit Reasons: ED- Left hand laceration, DOI:03/08/25 Intake Note: Yue is a 24 year old - hand dominant female, new patient, who presents today for an ER Visit Follow Up status post Left Hand Laceration, DOI: 03/08/25. Patient [place] [facility] [place] she was using a kitchen knife to cut into the center of a frozen water bottle when she accidentally stabbed her left hand between her left thumb and index finger. Patient was started on Augmentin. Today, patient complains of left thumb and index finger numbness, loss of ROM, making it difficult to make a complete fist. She has icing it and taking Naproxen with minimal relief. 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 Allergies No Known Allergies (No Known Allergies*) Allergy (Verified 03/14/25 13:31) [facility] HPI ED- Left hand laceration, DOI:03/08/25: Details: Yue is a 24 year old - hand dominant female, new patient, who presents today for an ER Visit Follow Up status post Left Hand Laceration, DOI: 03/08/25. Patient [place] [facility] [place] reporting she was using a kitchen knife to cut into the center of a frozen water bottle when she accidentally stabbed her left hand between her left thumb and index finger. Patient was started on Augmentin. Today, patient complains of left thumb and index finger loss of ROM, making it difficult to make a complete fist. She has icing it and taking Naproxen with minimal relief. 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 Denies any ongoing numbness at this time [facility] Medical History Back pain Social History (Updated 03/14/25 @ 13:41 by JAIDEN Hatfield) Alcohol intake: never Patient Tobacco Use Status: Never used Tobacco Current occupational status: employed Current occupation: rt handed, administration Review of Systems Const All systems reviewed & are unremarkable except as noted in HPI and below Physical Exam Vital Signs: BMI result Body Mass Index 27.4 Extrem Other: Patient is alert, oriented, and in no acute distress. Neuro: Normal sensation of the tips of all digits of the left hand at this time Vascular: Cap refill brisk Pain: Minimal tenderness to palpation about laceration site on 1st webspace of the left hand ROM: With encouragement, patient is able to get close to making a closed fist, can extend fully Skin: A proximally 2 cm laceration noted of the 1st webspace of the left hand, well healed General: No ecchymosis, erythema, or evidence of infection. Psych: Appears grossly normal Affect normal Attitude cooperative Assessment & Plan Assessment & Plan (1) Laceration of left hand: Code(s): S61.412A - Laceration without foreign body of left hand, initial encounter Category: Medical Plan 1. Left hand laceration No evidence of tendon or nerve injury Date of injury 03/04/2025 Patient is educated about this condition Patient is educated about the typical recovery course At this time, I feel the patient has difficulty with range of motion is due to stiffness, as she has been apprehensive about moving the hand and causing further injury Patient is educated she should continue working on range of motion of the left hand, using the other hand to bring herself to a closed fist and using a flat table to bring her fingers to full extension OT referral was also placed to work on range of motion of the left hand Due to no numbness or issues with flexion or extension at any joint of the left thumb or index finger, I do not feel there was any surgical intervention indicated at this time Patient understands this and is amenable to this plan Follow-up in 4-6 weeks for reassessment and cimfc-[id number] check, sooner with any acute concerns Orders: Orders OT Evaluation and Treatment Today S61.412A - Laceration without foreign body of left hand, initial encounter Coding Level of Care Code New Pt Level 3 (36026) Diagnoses Laceration of left hand S61.412A
[2025-03-14 13:31] VITALS: BMI 27.4
--- OUTSIDE RECORDS SUMMARY | 2025-03-14 15:25 | XMS_ITS | Clinical Summary ---
Author Organization [facility] Address [address] [place] [phone] Phone Care Team Providers Care Physician Practice Consultant Name Role Phone Unavailable Primary Care Provider [...] forms for depression[place]anxiety provided [place] [facility] Pt to schedule 30 minute f/u to [...]
--- OUTSIDE RECORDS SUMMARY | 2025-03-14 15:25 | XMS_ITS | Encounter Summary ---
Author Organization [facility] Address [address] [place] [phone] Phone Care Team Providers Care Ornamental Machine Operator Name Role Phone Franchesca Sigala MD Primary Care Provider [phone] Encounter Details Date Type Department Care Team (Late st Contact Info) Description 08/11/2016 Patient Outreach [facility], [address] [place] [address] Polish, [place] Social History Tobacco Use Types Packs/Day [...] on filedocumented in this encounter Care Teams Ornamental Machine Operator Relationship Specialty Start Date End Date Franchesca Sigala MD [address] [place] [address] [address] [place] [address] PCP - General 06/02/16 09/18/19 documented as of this encounter
--- OUTSIDE RECORDS SUMMARY | 2025-03-14 15:25 | XMS_ITS | Clinical Summary ---
Author Organization [facility] Address [address] [place] [address] Phone Care Team Providers Care Associate Professor Of Literacy Name Role Phone System, Provider Not In [...] O O O O HMO Care Teams Associate Professor Of Literacy Relationship Specialty Start Date End Date System, Provider Not In, [place] [address] PCP - General 10/04/19 Additional Source Comments The information contained in this document represents components of the legal health record. It is not the complete legal health record.[facility]
== END 2025-03-14 14:16 | disposition home or self-care (01) ==
LOC: HO.HOS 13:24
PROVIDERS: PCP Internal Medicine
DX: S61.412A Laceration without foreign body of left hand, initial encounter (principal)
CPT/HCPCS: 99203

== ENCOUNTER → 2025-03-14 13:23 | Outpatient (BNVA) | payer OTHER, SELFPAY | PROVIDERS: PCP Internal Medicine | DX: S61.412D Laceration without foreign body of left hand, subsequent encounter (principal); R20.0 Anesthesia of skin; W26.0XXD Contact with knife, subsequent encounter | CPT/HCPCS: 99202 ==

== ENCOUNTER 2025-03-24 13:57 | Outpatient (RCR) | payer OTHER, SELFPAY | END 2025-03-24 14:51 | disposition home or self-care (01) | LOC: HO.OT 13:57 | PROVIDERS: PCP Internal Medicine | DX: S61.412D Laceration without foreign body of left hand, subsequent encounter (principal) | CPT/HCPCS: 97165 ==